=== PATIENT | female | born 1980 | race Caucasian/White ===

== ENCOUNTER → 2021-03-22 15:23 | Outpatient (BNVA) | payer OTHER, SELFPAY | PROVIDERS: PCP Physician Assistant Medical; Visit Provider Nurse Practitioner Family ==

== ENCOUNTER 2023-02-19 12:01 | Outpatient (REF) | payer OTHER, SELFPAY ==
--- NOTE | ~2023-02-19 | XR_ITS ---
EXAMINATION: XR CERVICAL SPINE CLINICAL INFORMATION: Cervicalgia. COMPARISON: None available. TECHNIQUE: Frontal, lateral and odontoid views are obtained. FINDINGS: Vertebral body heights and alignment are normal. At C4-C5, there is moderate disc space narrowing, with spondylosis. At C5-C6, there is mild anterior spondylosis. At C6-C7, there is moderate disc space narrowing, spondylosis. The remaining disc spaces are well-maintained. No acute fracture or spondylolisthesis is seen. There is multi-level mild cervical spondylosis and facet arthropathy. The posterior elements are intact. There is no prevertebral soft tissue swelling. The dens and C7-T1 interface are normal. XR/XR cervical spine 2V IMPRESSION: 1. There is moderate degenerative disc disease at C4-C5 and C6-C7. 2. There is mild anterior spondylosis extending from C4-C5 through C6-C7. 3. There is multi-level mild cervical facet arthropathy.
== END 2023-02-19 12:02 | disposition home or self-care (01) ==
LOC: HO.XRAY 12:01
PROVIDERS: PCP Nurse Practitioner Family; Visit Provider Internal Medicine
DX: M54.2 Cervicalgia (principal)
CPT/HCPCS: 72040

== ENCOUNTER 2023-02-21 09:34 | Outpatient (AMB) | payer OTHER, SELFPAY ==
--- NOTE | 2023-02-21 09:35 | MHC.OFFVIS ---
Intake Intake Visit Reasons: neck pain Allergies oxycodone [OXYCODONE] Adverse Reaction (Unknown, Verified 02/21/23 16:06) FACIAL ITCHINESS HPI neck pain HPI Details 43-year-old female with a history of chronic neck pain, more pronounced on the right side. The pain is mostly axial in nature. It is rated as 5 to 8/10 in intensity. It tends to wake her up from sleep at night. She sleeps on her stomach. She has not been engaged in physical therapy. She recently underwent plain film of the neck. She also has a history of migraines and has been having an increased frequency of her migraines given the increasing progressive symptoms in her neck. She PFSH Surgical History H/O: hysterectomy History of tonsillectomy Family History (Updated 03/22/21 @ 16:08 by Lily Hansen) Father HTN (hypertension) Mother HTN (hypertension) Maternal Grandmother Cancer HTN (hypertension) Social History Alcohol intake: current Alcohol intake frequency: holidays/special occasions only Patient Tobacco Use Status: Never used Tobacco Review of Systems Const All systems reviewed & are unremarkable except as noted in HPI and below Physical Exam General: Appears afebrile. Alert and oriented. Mood and affect appropriate. Follows and participates in conversation appropriately. Respiratory effort is unlabored. Able to transition from sit to stand unassisted. Ambulates with bilaterally normal heel strike and toe off. Office Procedures Cervical/Thoracic Facet Inj Details: Therapeutic Cervical Medial Branch Block, Right , C3, C4, C5, C6 medial branches, Ultrasound Guided After obtaining written consent, pre-procedure blood pressure and pulse were recorded and are in the nursing record for review. The patient was placed in sitting position. The respective cervical area was prepped with chloraprep. A 25 gauge 1.5 inch needle was inserted into the target medial branch nerve under ultrasound guidance, which was used to identify the articular pillars. No paresthesias were elicited with needle placement and aspiration was negative for blood and CSF. Next 0.5 ml 0.5% bupivicaine mixed with dexamethasone 2.5 mg was injected (0.5 cc total per level). The identical procedure was performed at the remaining levels. The skin was cleansed and a sterile bandage was applied. Following the procedure the patient's vital signs were stable. The patient tolerated the procedure well and no complications were encountered. Following the procedure the patient's vital signs were stable. The patient was discharged home in good condition with post-procedural instructions. Time Out: Immediately prior to the procedure, the following was verbally confirmed that there is a signed consent form and that the correct patient, planned procedure, site and side are consistent with documentation and that necessary equipment and/or blood products are available prior to the start of the case. Complications: none 99885 - with Fluoroscopy 44859 - second level, with Fluoroscopy 15349 - third level, with Fluoroscopy Procedure code (CPT) selection complete Results Reviewed Results Reviewed: Plain film of the cervical spine reviewed. Loss of cervical lordosis. Moderate facet arthropathy with probable disc osteophyte complexes leading to lower cervical foraminal stenosis. Assessment & Plan Assessment & Plan (1) Spondylosis: Code(s): M47.9 - Spondylosis, unspecified (2) Cervicalgia: Code(s): M54.2 - Cervicalgia Plan Patient is status post right C3-4, C4-5, C5-6 therapeutic medial branch blocks with bupivacaine and dexamethasone. Patient tolerated procedure well and was discharged home in stable condition with discharge instructions. All questions were answered. Patient will follow-up as needed for repeat procedures as indicated. Scribed for Dr. Elaine by Paras Lopez, medical practice manager, on 02/21/2022. I, Dr. Elaine, have personally reviewed and agree with the information entered by the scribe. Coding Level of Care Code New Pt Level 3 (57004) Diagnoses Spondylosis M47.9 Cervicalgia M54.2 CPT Codes Facet Injection Cervical/Thoracic - CPT: 31829 - with Fluoroscopy ([id number]) Facet Injection Cervical/Thoracic - CPT: 46429 - second level, with Fluoroscopy ([id number]) Facet Injection Cervical/Thoracic - CPT: 11490 - third level, with Fluoroscopy ([id number])
== END 2023-02-21 09:35 | disposition home or self-care (01) ==
LOC: HO.PMC 09:34
PROVIDERS: PCP Nurse Practitioner Family; Visit Provider Internal Medicine
DX: M47.9 Spondylosis, unspecified (principal); M54.2 Cervicalgia
CPT/HCPCS: 64490; 64491; 64492; 99203

== ENCOUNTER → 2023-02-21 09:34 | Outpatient (BNVA) | payer OTHER, SELFPAY | PROVIDERS: PCP Nurse Practitioner Family; Visit Provider Internal Medicine | DX: M47.812 Spondylosis without myelopathy or radiculopathy, cervical region (principal); M54.2 Cervicalgia | CPT/HCPCS: 64490; 64491; 64492; J1100 ==

== ENCOUNTER 2023-03-06 08:23 | Emergency (ER) | payer OTHER, SELFPAY ==
--- NOTE | ~2023-03-06 | XR_ITS ---
EXAMINATION: XR CHEST CLINICAL INFORMATION: Palpitations. Dyspnea. Pain. COMPARISON: None available. TECHNIQUE: Frontal view of the chest was obtained. FINDINGS: Cardiac silhouette is normal in size. The lungs are well aerated. There is no lobar consolidation. No pleural effusion or pneumothorax. Surgical clips of the right upper abdomen suggesting prior cholecystectomy. XR/XR chest 1V IMPRESSION: No acute pulmonary pathology.
--- NOTE | 2023-03-06 08:29 | ECG_ITS ---
Test Reason : palpatations Blood Pressure : / mmHG Vent. Rate : 082 BPM Atrial Rate : 082 BPM P-R Int : 128 ms QRS Dur : 074 ms QT Int : 376 ms P-R-T Axes : 037 065 009 degrees QTc Int : 439 ms Normal sinus rhythm Normal ECG When compared with ECG of 22-JAN-2010 09:42, No significant change was found Referred By: Generic ED Physician Electronically Signed By:TERENCE CAMPOS
[2023-03-06 08:35] VITALS: BP 140/80; PULSE 80; RESP 19; TEMP 36.6; O2SAT 99; BMI 25.7
[2023-03-06 09:05] VITALS: BP 123/84; PULSE 75; RESP 15; O2SAT 98
--- NOTE | 2023-03-06 09:07 | ED.ARRPALP ---
HPI - Arrhythmia/Palpitations General Chief Complaint: Arrhythmia/Palpitations Stated Complaint: Heart palpitations, body aches Time Seen by Provider: 03/06/23 08:45 Source: patient Mode of arrival: ambulatory Limitations: no limitations History of Present Illness HPI narrative: 43 yo female with PMH of anxiety who takes PRN klonopin 0.5mg notes she tried cocaine on Friday since Friday she has had rapid heart beat, fluttering and body aches. She feels like it is not getting better or going away. She has not had fevers, cough, travel. No OCPs. She has never used cocaine before. She states even with taking extra klonopin it was not gone away. She also is not sleeping. MD complaint: rapid heart beat, heart racing and palpitations Onset (ago): day(s) (Friday) Duration: constant Severity: moderate Context: occurred during rest, occurred during exertion and recent drug use Associated symptoms: chest pain, anxiety and other (body aches) Treatments prior to arrival: other (anxiolytic) Related Data Home Medications Medication Instructions Recorded Confirmed albuterol sulfate 90 mcg/actuation 0 mcg inhalation 03/22/21 aerosol inhaler (ProAir HFA) budesonide 32 mcg/actuation nasal intranasal 03/22/21 spray citalopram 40 mg tablet 40 mg PO DAILY 03/22/21 clonazepam 0.5 mg tablet 0.5 mg PO BID PRN 03/22/21 lamotrigine 150 mg tablet 150 mg PO BID 03/22/21 ondansetron HCl 4 mg tablet 4 mg PO Q8H PRN 03/22/21 Previous Rx's Medication Instructions Recorded sumatriptan succinate 100 mg tablet 100 mg PO Q2H PRN migraine 10/15/22 headache 30 days #12 tabs celecoxib 100 mg capsule 100 mg PO BID PRN pain #60 caps 02/28/23 Allergies Allergy/AdvReac Type Severity Reaction Status Date / Time oxycodone [OXYCODONE] AdvReac Unknown FACIAL Verified 02/21/23 16:06 ITCHINESS Review of Systems Review of Systems: Constitutional : No Fever, No Chills, No Fatigue ENT/Mouth : No sore throat, No Rhinorrhea Eyes: No Eye Pain, No Swelling, No Redness Cardiovascular : No Chest Pain, No SOB, No Dyspnea on Exertion Respiratory : No Cough, No Sputum Gastrointestinal : No Nausea, No Vomiting, No Diarrhea, No abdominal Pain Genitourinary : No Dysuria, No Urinary Frequency, No Hematuria, Musculoskeletal : No joint pain, pos Myalgias, No Joint Swelling Skin : No Skin Lesions, No rash Neuro : No Weakness, No Numbness, No Dizzines no Headache Psych : pos Anxiety/Panic, No Depression Heme/Lymph: No Bruising, No Bleeding,No Lymphadenopathy Endocrine : No Polyuria, No Polydipsia All other systems reviewed and are negative [facility] Past Medical History Attestation statement: The following information was validated with the patient. Source: old records reviewed Onset Date is defined in the Problem List Problems that require an onset date and time if occurred within 24 hrs of arrival to the ED Aortic Dissection and Rupture; Neurologic impairment; Cardiopulmonary Arrest; Endotracheal Intubation; Insertion or Replacement of Mechanical Circulatory Assist Device Medical History Migraine without aura Surgical History H/O: hysterectomy History of tonsillectomy Family History Family History (Updated 03/22/21 @ 16:08 by Lily Hansen) Father HTN (hypertension) Mother HTN (hypertension) Maternal Grandmother Cancer HTN (hypertension) Social History Social History Alcohol intake: current Alcohol intake frequency: does not drink Patient Tobacco Use Status: Never used Tobacco Use of substances other than those prescribed or required for medical reasons: No Advance Directives: No Advance Directives Information Provided: No Physical Exam Vital Signs: Vital Signs: Last Vital Signs Temp 98 F 03/06/23 08:35 Pulse 75 03/06/23 09:05 Resp 15 03/06/23 09:05 BP 123/84 03/06/23 09:05 Pulse Ox 98 03/06/23 09:05 O2 Del Method Room Air 03/06/23 09:05 BMI result Body Mass Index 25.7 Appearance: Alert. Oriented X3. No acute distress. Anxious Eyes: Pupils equal, round and reactive to light. ENT: Pharynx normal. Neck: Normal inspection. Neck supple. CVS: Normal heart rate and rhythm. Pulses normal. Respiratory: No respiratory distress. Breath sounds normal. Abdomen: Soft and non-tender. Skin: Skin warm and dry. Normal skin color. Normal skin turgor. Extremities: No lower extremity edema. No calf ttp Neuro: Oriented X 3. No motor deficit. No sensory deficit. Medical Decision Making Medical Decision Making [facility] Narrative: 43 yo female with hx of anxiety who did cocaine on Friday now with prolonged anxiety, palpitations, atypical chest pain - she is not sleeping, her heart is racing. She is PERC negative, she has no known ACS risk factors. At this time will obtain lytes, TSH, troponin, EKG, CXR. Start on oral valium for some anxiolytic. Differential Diagnosis Differential Diagnoses: The differential diagnosis associated with the presentation includes anxiety, palpitations, lyte abnormality, viral syndrome, cocaine induced anxiety Admission/Observation Consideration of admission/observation: Escalation of care including admission/observation considered negative labs and no events on tele at this time will refer to PCP for holter monitor Lab Data [facility] Lab Attestation statement: I reviewed the patient's lab results. 03/06/23 09:12 03/06/23 09:12 Labs: Lab Results 03/06/23 Range/Units 09:12 WBC 6.9 (4.8-10.8) X10*3/uL RBC 3.91 L (4.20-5.50) X10*6/uL Hgb 12.3 (12.0-16.0) g/dl Hct 37.0 (37.0-47.0) % MCV 94.6 (80.0-98.0) fL MCH 31.5 (27.0-33.0) pg MCHC 33.2 (31.0-35.0) g/dl RDW 12.5 (11.0-16.0) % Plt Count 353 (160-400) X10*3/uL MPV 9.3 L (9.4-12.3) fL Immature Gran % (Auto) 0.3 (0.0-0.4) % Neut % (Auto) 63.7 (45-73) % Lymph % (Auto) 24.7 (20-40) % [place]anan % (Auto) 8.4 (2-11) % Eos % (Auto) 2.6 (0-4) % Baso % (Auto) 0.3 (0-2) % Lymph # (Auto) 1.7 (1.2-4.9) X10*3/uL [place] # (Auto) 0.6 (0.1-1.2) X10*3/uL Eos # (Auto) 0.2 (0.0-0.4) X10*3/uL Baso # (Auto) 0.0 (0.0-0.2) X10*3/uL Abs Immat Gran (auto) 0.02 (0.00-0.03) X10*3/uL Absolute Neuts (auto) 4.4 (2.0-8.3) x10*3/uL Absolute Nucleated RBC 0.000 (0.0-0.012) X10*3/uL Nucleated RBC % (auto) 0.0 (0.0-0.2) /100WBC Sodium 141 (135-145) mmol/L Potassium 3.7 (3.3-5.1) mmol/L Chloride 108 (96-108) mmol/L Carbon Dioxide 28 (22-29) mmol/L Anion Gap 9 L (12-20) BUN 5 L (9-16) mg/dL Creatinine 0.75 (0.5-1.4) mg/dL Estim Creat Clear Calc 79.7 Estimated GFR > 60 Random Glucose 91 (60-115) mg/dL Calcium 9.3 (8.4-10.2) mg/dL Magnesium 2.2 (1.6-2.6) mg/dL Total Bilirubin 0.2 (0.0-1.0) mg/dL Direct Bilirubin < 0.2 (0.0-0.5) mg/dL AST 15 (5-31) U/L ALT 26 (0-31) U/L Alkaline Phosphatase 47 (39-117) U/L Total Creatine Kinase 59 (26-140) U/L Troponin I High Sens < 2.7 (<3.5-17.0) ng/L Total Protein 6.9 (6.5-8.0) g/dL Albumin 4.1 (3.5-5.0) g/dL TSH 1.51 (0.32-4.0) uIU/mL COVID-19 (SHALINI) Negative (Negative) COVID-19 Clin Com See Note Influenza Type A (ASYA) Negative (Negative) Influenza Type B (ASYA) Negative (Negative) Influenza A & B Note See Note Independent Interpretation I performed an independent interpretation of an: EKG and Plain X-Ray Interpretation: Rate: 82 Rhythm: NSR [place]: normal Normal P waves. Normal LEONARDA. Normal QRS complex. ST T wave : normal no NANCY qTC: 439 prior studies: no acute ischemia The study has been interpreted contemporaneously by me. . Radiology Impression Discussion of test interpretation with radiology: I have reviewed the radiologist's reading. External Record Review External record reviewed: Inpatient record Discharge Plan Discharge Clinical Impression: Palpitations Patient Disposition: Home, Self-Care Instructions: Heart Palpitations (ED) Additional Instructions: return for worsening symptoms - today negative flu, covid, normal electrolytes, normal thyroid, negative test for heart attack, EKG reassuring, Chest xray was normal. flu negative. labs were reassuring, no events on tele. At this time suspect residual events from ingestion. Please contact your doctor for a holter monitor to capture palpitations. return for worsening symptoms, fainting, increased pain, swelling, shortness of breath or any other concerns. Prescriptions: No Action sumatriptan succinate 100 mg tablet 100 mg PO Q2H PRN (Reason: migraine headache) 30 Days Qty: 12 6RF Rx Instructions: max 2 tabs per day or 4 tabs/week (may take with Tylenol) celecoxib 100 mg capsule 100 mg PO BID PRN (Reason: pain) Qty: 60 2RF citalopram 40 mg tablet 40 mg PO DAILY lamotrigine 150 mg tablet 150 mg PO BID clonazepam 0.5 mg tablet 0.5 mg PO BID PRN ondansetron HCl 4 mg tablet 4 mg PO Q8H PRN budesonide 32 mcg/actuation spray,non-aerosol intranasal albuterol sulfate [ProAir HFA] 90 mcg/actuation HFA aerosol inhaler 0 mcg inhalation Referrals: Kailee Mcdonald NP [Primary Care Provider] - (call to obtain holter monitor) Stand Alone Forms: Work/School Release
--- NOTE | 2023-03-06 09:16 | PC.NURSE ---
pt alert and oriented, vss, pt reports heart palpitations that started on Friday and has gotten progressively worse since then. she also reports headache, no sob, dizziness, blurry vision. no other complaints to this lyric writer at this time. pt asked if she wants her status to be confidential. she states not at this time if something shows up in my results, we will discuss it .
[2023-03-06 09:21] LABS: MANUAL DIFF FLAG NO
[2023-03-06 09:26] LABS: Basophils Percent Auto 0.3 % (0-2); Eosinophils Absolute Auto 0.2 X10*3/uL (0.0-0.4); Eosinophils Percent Auto 2.6 % (0-4); Hemoglobin 12.3 g/dl (12.0-16.0); Imm Gran Abs Auto 0.02 X10*3/uL (0.00-0.03); Imm Gran Pct Auto 0.3 % (0.0-0.4); Lymphocytes Absolute Auto 1.7 X10*3/uL (1.2-4.9); Lymphocytes Percent Auto 24.7 % (20-40); Mean Corpuscular HGB Conc 33.2 g/dl (31.0-35.0); Mean Corpuscular Hemoglobin 31.5 pg (27.0-33.0); Mean Corpuscular Volume 94.6 fL (80.0-98.0); Mean Platelet Volume 9.3 fL (9.4-12.3); Monocytes Absolute Auto 0.6 X10*3/uL (0.1-1.2); Monocytes Percent Auto 8.4 % (2-11); Neutrophils Absolute Auto 4.4 x10*3/uL (2.0-8.3); Neutrophils Percent Auto 63.7 % (45-73); Platelet Count 353 X10*3/uL (160-400); Red Blood Count 3.91 X10*6/uL (4.20-5.50); Red Cell Distribution Width 12.5 % (11.0-16.0); White Blood Count 6.9 X10*3/uL (4.8-10.8)
[2023-03-06 09:39] LABS: Alanine Aminotransferase 26 U/L (0-31); Albumin Level 4.1 g/dL (3.5-5.0); Alkaline Phosphatase 47 U/L (39-117); Anion Gap 9 (12-20); Aspartate Amino Transferase 15 U/L (5-31); Bilirubin Direct < 0.2 mg/dL (0.0-0.5); Bilirubin Total 0.2 mg/dL (0.0-1.0); Blood Urea Nitrogen 5 mg/dL (9-16); Calcium 9.3 mg/dL (8.4-10.2); Carbon Dioxide 28 mmol/L (22-29); Chloride 108 mmol/L (96-108); Creatinine Clr Calc Pharmacy 79.7; Estimated Glomerular Filt Rate > 60; Glucose Random 91 mg/dL (60-115); Magnesium 2.2 mg/dL (1.6-2.6); Potassium 3.7 mmol/L (3.3-5.1); Sodium 141 mmol/L (135-145); Total Protein 6.9 g/dL (6.5-8.0)
[2023-03-06 09:49] LABS: IDNOW Serial# 9DB6401D; Influenza A Negative (Negative)
[2023-03-06 09:50] LABS: Influenza B2 Negative (Negative)
[2023-03-06 09:53] LABS: Troponin-I High Sensitivity < 2.7 ng/L (<3.5-17.0)
[2023-03-06 09:59] LABS: IDNOW Serial# 58CA691E
[2023-03-06 10:00] LABS: COVID-19 Test Negative (Negative); TSH reflex Free T4 1.51 uIU/mL (0.32-4.0)
[2023-03-06] MEDS: diazePAM 2 MG TABLET 5 MG PO (10:03)
--- NOTE | 2023-03-06 10:07 | PC.NURSE ---
po meds given as documented.
[2023-03-06 10:17] VITALS: BP 129/84; PULSE 75; RESP 20; O2SAT 99
--- NOTE | 2023-03-06 10:18 | PC.NURSE ---
pt cleared for discharge, discharge instructions reviewed with pt. no complaints at the time of discharge. ambulated to waiting room.
== END 2023-03-06 10:19 | disposition home or self-care (01) ==
PROVIDERS: Emergency Provider Emergency Medicine; PCP Nurse Practitioner Family
DX: I49.9 Cardiac arrhythmia, unspecified (principal); M79.10 Myalgia, unspecified site; R00.2 Palpitations; F14.90 Cocaine use, unspecified, uncomplicated; F41.9 Anxiety disorder, unspecified; Z11.52 Encounter for screening for COVID-19; Z20.828 Contact with and (suspected) exposure to other viral communicable diseases; Z79.899 Other long term (current) drug therapy
CPT/HCPCS: 36415; 71045; 80048; 80076; 82550; 83735; 84443; 84484; 85025; 87502; 87635; 93005; 99283; 99285

== ENCOUNTER → 2023-03-06 08:29 | Outpatient (BNV) | payer OTHER, SELFPAY | PROVIDERS: Emergency Provider Emergency Medicine; PCP Nurse Practitioner Family; Visit Provider Internal Medicine | DX: R00.2 Palpitations (principal) | CPT/HCPCS: 93010 ==

== ENCOUNTER 2023-03-11 15:15 | Outpatient (AMB) | payer OTHER, SELFPAY ==
--- NOTE | 2023-03-11 15:31 | MHC.OFFVIS ---
Intake Vital Signs 03/11/23 15:38 Height 5 ft 1 in BP 110/80 Blood Pressure Location Rt brachial Position Sitting Pulse 87 Pulse Source Pulse Oximeter Pulse Oximetry (%) 98 Oxygen Delivery Method Room Air Intake Visit Reasons: Increased in HERNANDEZ and neck pain Intake Note: Patient presents for follow up on migraines and neck pain. There getting more frequent, the only think Im taking is sumatriptan Allergies oxycodone [OXYCODONE] Adverse Reaction (Unknown, Verified 03/11/23 15:44) FACIAL ITCHINESS Medication List - Last Reconciled 03/11/23 by JUAN Quezada albuterol sulfate 90 mcg/actuation (ProAir HFA) 0 mcg inhalation budesonide 32 mcg/actuation intranasal celecoxib 100 mg PO BID PRN citalopram 40 mg PO DAILY clonazepam 0.5 mg PO BID PRN lamotrigine 150 mg PO BID ondansetron HCl 4 mg PO Q8H PRN sumatriptan succinate 100 mg PO Q2H PRN 30 days HPI HPI Comments History of Present Illness Details 43-yr-old female presents for f/u visit. Pt denies any significant interval medical changes. She has been having an increase in her migraines- now 2 x's per week. About 3 months ago, she has been having right upper cervical throbbing pain, which usually is focal but occasionally can shoot up to her right eye. The migraine is mod-severe righted in the eye, a/w photophobia, phonophobia, allodynia, nausea, difficulty sleeping, activity intolerance, dizziness, cognitive difficulties. Migraines triggered by stress or poor sleep- has chronic insomnia. If she does not catch the migraine at the 1st sign, Sumatriptan may not work and she cannot work. [facility] Medical History (Updated 03/13/23 @ 09:52 by JUAN Quezada) Migraine without aura Surgical History H/O: hysterectomy History of tonsillectomy Family History Father HTN (hypertension) Mother HTN (hypertension) Maternal Grandmother Cancer HTN (hypertension) Social History Alcohol intake: current Alcohol intake frequency: does not drink Patient Tobacco Use Status: Never used Tobacco Physical Exam Vital Signs: Last Vital Signs Pulse 87 03/11/23 15:38 BP 110/80 03/11/23 15:38 Pulse Ox 98 03/11/23 15:38 Oxygen Delivery Method Room Air 03/11/23 15:38 Const General: cooperative and no acute distress Orientation/consciousness: patient oriented x3 HEENT Other: Right lower occipital region focal area of palpable tenderness, nonradiating. Resp Effort & Inspection: normal respiratory effort and able to speak in complete sentences Neuro General: patient oriented x3 Cranial nerves: Yes CN's II-XII intact bilaterally Cognition (Neuro): normal cognition Psych Appearance: grossly normal Mental Status: mental status grossly normal Speech and movement: Normal speech and movement present Affect: normal affect Attitude: cooperative Assessment & Plan Assessment & Plan (1) Migraine without aura: Code(s): G43.009 - Migraine without aura, not intractable, without status migrainosus (2) Spasmodic torticollis: Code(s): G24.3 - Spasmodic torticollis Plan For acute headache treatment: It is important to take as needed acute medications at the first sign of headache, however you want to avoid taking most as needed headache too often as this can lead to medication overuse/adaptation headaches. Trial rizatriptan 10 mg p.r.n. may add joint with ibuprofen or Tylenol. Hold sumatriptan for now Potential adverse effects of triptans, including but not limited to nausea, fatigue, chest tightness/tingling (usually passes within a few minutes), medication overuse headaches. Previous acute migraine medication trials: Sumatriptan not always effective Acute migraine medication contraindications: None at this time For headache prevention medication: Preventative medications should be taken routinely as prescribed for best effect, it may take several weeks to see full effect. Start Ajovy 225 mg subcu q.month. Reviewed potential adverse effects of Ajovy, including but not limited to injection site reactions. Previous migraine prevention medication trials: Amitriptyline, Propranolol, Amlodipine. Migraine prevention medication contraindications: Depakote and topiramate due to current polypharmacy in a female patient of childbearing age. For spasmodic torticollis and occipital region pain: Monitor response to Ajovy as above. Follow-up with pain management as scheduled Future considerations: Resuming Botox or, occipital nerve bloc, ktrigger point injections. Follow-up in 4 months or sooner prn. Medications: New rizatriptan max 2 tabs per day or 4 tabs per week 5 - 10 mg (0.5 - 1 x 10 mg) PO Q2H PRN 12 tabs 3RF migraine headache 21 days fremanezumab-vfrm (Ajovy) administer 225mg sc q month 225 mg (1.5 mL) subcut ONCE 1.5 mL 6RF 28 days Coding Level of Care Code Est Pt Level 4 (63138) Diagnoses Migraine without aura G43.009 Spasmodic torticollis G24.3
[2023-03-11 15:38] VITALS: BP 110/80; PULSE 87; O2SAT 98
== END 2023-03-11 16:26 | disposition home or self-care (01) ==
PROVIDERS: PCP Physician Assistant Medical; Visit Provider Nurse Practitioner Family
DX: G43.009 Migraine without aura, not intractable, without status migrainosus (principal); G24.3 Spasmodic torticollis
CPT/HCPCS: 99214

== ENCOUNTER → 2023-03-11 15:15 | Outpatient (BNVA) | payer BC, SELFPAY | PROVIDERS: PCP Physician Assistant Medical; Visit Provider Nurse Practitioner Family ==

== ENCOUNTER 2023-08-05 09:30 | Inpatient (IN) | payer OTHER, SELFPAY ==
--- NOTE | 2023-08-05 | ECG_ITS ---
Test Reason : CHEST PRESSURE Blood Pressure : / mmHG Vent. Rate : 081 BPM Atrial Rate : 081 BPM P-R Int : 130 ms QRS Dur : 072 ms QT Int : 376 ms P-R-T Axes : 059 068 044 degrees QTc Int : 436 ms Normal sinus rhythm with sinus arrhythmia Normal ECG When compared with ECG of 06-MAR-2023 08:31, Nonspecific T wave abnormality no longer evident in Inferior leads Referred By: Generic ED Physician Electronically Signed By:Chepe Beach
[2023-08-05 09:32] VITALS: BP 132/85; PULSE 89; RESP 14; TEMP 36.7; O2SAT 95; BMI 26.1
[2023-08-05 10:03] LABS: MANUAL DIFF FLAG NO
[2023-08-05 10:05] LABS: Basophils Percent Auto 0.2 % (0-2); Eosinophils Absolute Auto 0.2 X10*3/uL (0.0-0.4); Eosinophils Percent Auto 3.2 % (0-4); Hematocrit 36.5 % (37.0-47.0); Hemoglobin 12.5 g/dl (12.0-16.0); Imm Gran Abs Auto 0.02 X10*3/uL (0.00-0.03); Imm Gran Pct Auto 0.4 % (0.0-0.4); Lymphocytes Absolute Auto 2.2 X10*3/uL (1.2-4.9); Lymphocytes Percent Auto 39.2 % (20-40); Mean Corpuscular HGB Conc 34.2 g/dl (31.0-35.0); Mean Corpuscular Hemoglobin 32.1 pg (27.0-33.0); Mean Corpuscular Volume 93.6 fL (80.0-98.0); Mean Platelet Volume 9.4 fL (9.4-12.3); Monocytes Absolute Auto 0.5 X10*3/uL (0.1-1.2); Monocytes Percent Auto 9.3 % (2-11); Neutrophils Absolute Auto 2.7 x10*3/uL (2.0-8.3); Neutrophils Percent Auto 47.7 % (45-73); Platelet Count 348 X10*3/uL (160-400); Red Cell Distribution Width 12.2 % (11.0-16.0); White Blood Count 5.6 X10*3/uL (4.8-10.8)
[2023-08-05 10:26] LABS: Acetaminophen LAB < 3 mcg/mL (<30); Alanine Aminotransferase 19 U/L (0-31); Albumin Level 4.2 g/dL (3.5-5.0); Alkaline Phosphatase 56 U/L (39-117); Anion Gap 12 (12-20); Aspartate Amino Transferase 18 U/L (5-31); Bilirubin Total 0.4 mg/dL (0.0-1.0); Blood Urea Nitrogen 7 mg/dL (9-16); Calcium 8.7 mg/dL (8.4-10.2); Carbon Dioxide 27 mmol/L (22-29); Chloride 106 mmol/L (96-108); Creatinine Clr Calc Pharmacy 70.8; Estimated Glomerular Filt Rate > 60; Ethanol < 10 mg/dL; Glucose Random 94 mg/dL (60-115); Salicylate < 5.0 mg/dL (15-30); Sodium 141 mmol/L (135-145); Total Protein 6.9 g/dL (6.5-8.0)
--- NOTE | 2023-08-05 11:23 | PC.NURSE ---
patient tearful during triage. when patient was told that she was a section 12 and had to meet with care team and change into hospital attire, patient became agitated with the process stating she has a home to take care of. belongings locked in pod closet. care team in meeting with patient at this time.
--- NOTE | 2023-08-05 11:30 | MHC.EDTECH ---
Patient Belonging secured in ED BH POD Closet first shelf
[2023-08-05] MEDS: clonazePAM 1 MG TABLET PO (11:46)
--- NOTE | 2023-08-05 14:46 | ED_ITS ---
HPI - Psych General Chief Complaint: Psychiatric Symptoms Stated Complaint: Syncope/ crisis Time Seen by Provider: 08/05/23 10:29 Source: patient Mode of arrival: ambulatory Limitations: no limitations History of Present Illness HPI Narrative: Patient works in short stay. She has been under a lot of stress, has been drinking alcohol and using cocaine. She has thoughts of not living but denies a plan. Patient is guarded and tearful complaint: suicidal ideation and feels depressed Onset (ago): week(s) Related Data Home Medications ?Medication ?Instructions ?Recorded ?Confirmed citalopram 40 mg tablet 40 mg PO DAILY 03/22/21 08/05/23 clonazepam 0.5 mg tablet 0.5 mg PO BID PRN Anxiety 03/22/21 08/05/23 lamotrigine 150 mg tablet 150 mg PO BID 03/22/21 08/05/23 fexofenadine-pseudoephedrine ER 1 tab PO QAM 08/05/23 08/05/23 180 mg-240 mg tablet,ext.release 24 hr (Anisha-D 24 Hour) Previous Rx's ?Medication ?Instructions ?Recorded sumatriptan succinate 100 mg tablet 100 mg PO Q2H PRN migraine 10/15/22 headache 30 days #12 tabs clonidine HCl 0.1 mg tablet 0.1 mg PO Q4H PRN anxiety 30 days 08/06/23 #60 tabs Allergies Allergy/AdvReac Type Severity Reaction Status Date / Time No Known Allergies Allergy Verified 08/05/23 09:33 Review of Systems 2 Review of Systems: Yes all other systems are reviewed and are negative Neurologic: Denies Sensory deficit (Neuro) [facility] Past Medical History Medical History (Updated 08/06/23 @ 12:41 by Del Boucher MD) Cocaine use disorder Alcohol use disorder PTSD (post-traumatic stress disorder) Adjustment disorder with mixed disturbance of emotions and conduct in remission Migraine without aura Surgical History H/O: hysterectomy History of tonsillectomy Family History Family History Father HTN (hypertension) Mother HTN (hypertension) Maternal Grandmother Cancer HTN (hypertension) Social History Social History Household Members: Other Household Members Other:: Cat Housing: Apartment Do you presently have visiting nurse or other home services: No Alcohol intake: current Alcohol intake frequency: does not drink Patient Tobacco Use Status: Never used Tobacco Use of substances other than those prescribed or required for medical reasons: Yes Substance Use Type: Crack/Cocaine Last Used Substance Other:: once this weekend Currently Displaying Signs/Symptoms of Drug Intoxication Withdrawal: No Any prior treatment program specific to substance use: No Have you been hit, kicked, punched, or otherwise hurt by someone within the past year? If so, by whom?: No Do you feel safe in your current relationship?: No Current Relationship Is there a partner from a previous relationship who is making you feel unsafe now?: No Are you made to feel afraid or neglected: No Spiritual Healthcare Practices: None Reported Advance Directives: No Advance Directives Information Provided: No Do you have a plan to hurt others: No Plan Recently lost weight without trying: No How much weight loss: Not applicable Eating poorly because of decreased appetite: No Nutrition screen score: 0 Nutrition Risks: No Nutritional Risk Patient : No : No Poor oral hygiene: No Physical Exam 2 Vital Signs: Vital Signs: Last Vital Signs Temp 98.2 F 08/06/23 09:55 Pulse 97 08/06/23 09:55 Resp 18 08/06/23 09:55 BP 126/75 08/06/23 09:55 Pulse Ox 97 08/06/23 09:55 O2 Del Method Room Air 08/06/23 09:55 BMI result Body Mass Index 26.1 Const: Other: female crying appearing stressed Orientation/consciousness: oriented to person and patient oriented x3 L imitations: no limitations HEENT: Head: Yes normal to inspection Ears: external ears normal General nose exam: Normal external nose present Mouth: Normal oral and palatal mucosa present and oropharynx normal Throat: Yes posterior oropharynx normal Eyes: General: appearance normal, both eyes and all related structures Neck: Other: supple Neck: Yes normal visual inspection Chest: Chest palpation & inspection: normal inspection of the chest Resp: Auscultation: clear to auscultation bilaterally Cardio: Jugular venous distension: no JVD Rate: regular rate Rhythm: r egular rhythm Heart sounds: S1 normal heart sound present and S2 normal heart sound present GI: Inspection: Yes normal to inspection Palpation (GI): Soft to palpation, nontender and No hepatosplenomegaly present Auscultation: normal bowel sounds : General: Yes no CVA tenderness Back/Spine/Pelvis: Back: no CVA tenderness Skin: General skin exam: no rashes or lesions noted Neuro: General: oriented to person and patient oriented x3 Cranial nerves: Yes CN's II-XII intact bilaterally Motor exam (neuro): 5/5 motor strength present throughout Sensory Exam: No Sensory deficit (Neuro) Extrem: General: Yes normal to inspection Psych: Other: tearful yet guarded Course Reevaluation(s) Reevaluation #1: patient is a concern for suicide will have the patient evaluated by Time: 14:49 Reevaluation #2: Patient placed in physician observation at 3:30pm. The reason is that she needs time to be evaluated and reevaluated for depression as well as needs to see how she does over time. Time: 15:34 Reevaluation #3: end physician observation: admission has been decided upon Time: 15:36 Medications Administered Discontinued Medications Generic Name Dose Route Start Last Admin Trade Name Freq PRN Reason Stop Dose Admin Acetaminophen 650 mg 08/05/23 15:31 08/06/23 09:22 Acetaminophen 325 Mg Tablet PO 650 mg Q6H PRN Administration Headache/Pain Mild Scale (1-3) Clonazepam 1 mg 08/05/23 11:30 08/05/23 11:46 Clonazepam 1 Mg Tablet PO 08/05/23 11:31 1 mg ONCE ONE Administration Clonazepam 0.5 mg 08/05/23 17:50 08/06/23 09:22 Clonazepam 0.5 Mg Tablet PO 0.5 mg BID PRN Administration Anxiety Escitalopram Oxalate 20 mg 08/06/23 09:00 08/06/23 08:52 Escitalopram Oxalate 20 Mg Tablet PO Not Given DAILY RODRIGUEZ Lamotrigine 150 mg 08/05/23 21:00 08/06/23 08:52 Lamotrigine 25 Mg Tablet PO Not Given BID RODRIGUEZ Naloxone HCl 8 mg 08/06/23 12:50 08/06/23 13:00 Naloxone Hcl Nasal Take Home 4 Mg [place] NOSTRILALT 08/06/23 12:51 8 mg ONCE ONE Administration Sumatriptan Succinate 25 mg 08/05/23 14:51 08/05/23 15:15 Sumatriptan Succinate 25 Mg Tablet PO 08/05/23 14:52 25 mg ONCE ONE Administration Trazodone HCl 50 mg 08/05/23 15:31 08/05/23 20:43 Trazodone Hcl 50 Mg Tablet PO 50 mg BEDTIME [id number] PRN Administration Insomnia Medical Decision Making Differential Diagnosis Differential Diagnoses: The differential diagnosis associated with the presentation includes (depression, polysubstance abuse, alcohol dependency, suicidal ideation) Admission/Observation Consideration of admission/observation: Escalation of care including admission/observation considered (upon arrival patient considered for admission) Consult Healthcare Provider Management of the patient was discussed with: Behavioral Health Provider Lab Data 08/05/23 09:59 08/05/23 09:59 Labs: Lab Results 08/05/23 Range/Units 09:59 WBC 5.6 (4.8-10.8) X10*3/uL RBC 3.90 L (4.20-5.50) X10*6/uL Hgb 12.5 (12.0-16.0) g/dl Hct 36.5 L (37.0-47.0) % MCV 93.6 (80.0-98.0) fL MCH 32.1 (27.0-33.0) pg MCHC 34.2 (31.0-35.0) g/dl RDW 12.2 (11.0-16.0) % Plt Count 348 (160-400) X10*3/uL MPV 9.4 (9.4-12.3) fL Immature Gran % (Auto) 0.4 (0.0-0.4) % Neut % (Auto) 47.7 (45-73) % Lymph % (Auto) 39.2 (20-40) % [place] % (Auto) 9.3 (2-11) % Eos % (Auto) 3.2 (0-4) % Baso % (Auto) 0.2 (0-2) % Lymph # (Auto) 2.2 (1.2-4.9) X10*3/uL [place] # (Auto) 0.5 (0.1-1.2) X10*3/uL Eos # (Auto) 0.2 (0.0-0.4) X10*3/uL Baso # (Auto) 0.0 (0.0-0.2) X10*3/uL Abs Immat Gran (auto) 0.02 (0.00-0.03) X10*3/uL Absolute Neuts (auto) 2.7 (2.0-8.3) x10*3/uL Absolute Nucleated RBC 0.000 (0.0-0.012) X10*3/uL Nucleated RBC % (auto) 0.0 (0.0-0.2) /100WBC Sodium 141 (135-145) mmol/L Potassium 4.0 (3.3-5.1) mmol/L Chloride 106 (96-108) mmol/L Carbon Dioxide 27 (22-29) mmol/L Anion Gap 12 (12-20) BUN 7 L (9-16) mg/dL Creatinine 0.85 (0.5-1.4) mg/dL Estim Creat Clear Calc 70.8 Estimated GFR > 60 Random Glucose 94 (60-115) mg/dL Calcium 8.7 D (8.4-10.2) mg/dL Total Bilirubin 0.4 (0.0-1.0) mg/dL AST 18 (5-31) U/L ALT 19 (0-31) U/L Alkaline Phosphatase 56 (39-117) U/L Total Protein 6.9 (6.5-8.0) g/dL Albumin 4.2 (3.5-5.0) g/dL Salicylates < 5.0 L (15-30) mg/dL Acetaminophen < 3 (<30) mcg/mL Ethyl Alcohol < 10 mg/dL Chronic Conditions Patient?s care impacted by: Other (depression) Social Determinants Patient?s care significantly limited by Social Determinants of Health including: Alcoholism and drug addiction in family Discharge Plan Discharge Clinical Impression: Suicidal ideation, Depression Patient Disposition: Admitted As Inpatient Interventions: Admission Worksheet (ED) Last Done: 08/05/23 16:37 Discharge Date/Time: 08/05/23 16:39
[2023-08-05] MEDS: SUMAtriptan succinate 25 MG TABLET PO (15:15)
[2023-08-05 16:40] LABS: Amphetamine Screen Urine Not Detected (Not Detect); Barbiturates, Urine Not Detected (Not Detect); Benzodiazepines Screen Urine Not Detected (Not Detect); Buprenorphine Scr Not Detected (Not Detect); Cannabinoid Screen Urine Not Detected (Not Detect); Cocaine Screen Urine POSITIVE (Not Detect); Fentanyl, urine Not Detected (Not Detect); Methadone Screen, Urine Not Detected (Not Detect); Opiate Screen Urine Not Detected (Not Detect); Oxycodone Screen Urine Not Detected (Not Detect); Phencyclidine Screen Urine Not Detected (Not Detect)
[2023-08-05 16:48] LABS: Appearance Urine Clear; Color Urine Yellow; Glucose Urine UA Negative (Negative); Leukocyte Esterase Urine Negative (Negative); Nitrite Urine Negative (Negative); Specific Gravity - Urine <= 1.005 (1.005-1.025); Urine Blood Negative (Negative); Urine Ketones Negative (Negative); Urine Protein Negative (Neg-Trace)
--- NOTE | 2023-08-05 17:18 | P.HPPS_ITS ---
[facility] Date of Service: 08/05/23 Chief Complaint: depression/SI Sources of Information: patient interviewed, chart reviewed and crisis/core team assessment reviewed HPI Subjective Notes: Conditional Voluntary and Section 12B Narrative: Patient is a 43-year-old female with history of depression/anxiety, PTSD and intermittent cocaine/alcohol abuse. Patient presents after making suicidal comments to coworkers. Patient is upset that she is admitted, saying that her comments got taking way out of context and she remains on a 12 B. Despsite being upset she is calm, polite, cooperative, forthcoming, logical and linear and organized in behavior and speech. Patient said that about once a month she relapses with alcohol and cocaine which she did this past weekend. She says she always feels depressed and angry at herself the day after and this was no different. Patient reports that she has no history at all suicide or of any of self-harm. She reports that time to time she will get passive thoughts of wishing she were not here but adamantly reiterates she would never kill herself, knowing that these passive thoughts will soon pass and citing love for her father and cat as protective factors. Patient said that this Friday after this binge weekend, she was feeling depressed and texted a co-worker who was also friend that she wishes she could off herself. Patient says that this is not uncommon, she was just venting, and that her friend knows her well. She reports that her friend said something to the effect of stop Saying that... [listen to] put your music on... Later on in the day patient says she was crying (which she says is also not uncommon for her) and her supervisor dehydrogenation came over and asked why. Patient very much regrets ever saying anything to her but acknowledges she said something to the effect of have you ever just wanted to not be here anymore... Patient felt that her supervisor dehydrogenation started almost forcibly asking her questions which caused her to become exceedingly anxious and then triggered a full-blown panic attack causing patient to pass out. She was brought to the emergency room and although she maintains that she was never suicidal, that these were just thoughts that she was expressing, she is now being psychiatrically admitted. Patient again reiterates she does not need to be on a locked unit, that she has a therapist, psychiatrist that she is on medications which she takes regularly is in no way a risk to herself at all. She says she just wants to discharge, get back home, get back to her cat, and work out her issues with her outpatient provider as she normally does. She agrees that her once a month substance abuse is definitely a problem for her and that she needs to start going to AA. Past Psychiatric History: Psychiatrically admitted one time 20 years ago in 2003 when her grandmother No history of suicide attempts or self-harm Medical Evaluation Reviewed: Yes [facility] Medical History (Updated 08/06/23 @ 12:41 by Del Boucher MD) Cocaine use disorder Alcohol use disorder PTSD (post-traumatic stress disorder) Adjustment disorder with mixed disturbance of emotions and conduct in remission Migraine without aura Surgical History H/O: hysterectomy History of tonsillectomy Family History: Mother: Verbally abusive Social History: Patient has a full-time employee of this [employer], working her for about a year. She reports that this job has been stressful for her Lives alone in her own apartment with her beloved cat Never and no children Mother remains verbally abusive She is close to her father is ill and whom she visits regularly Substance History: Once a month she ends up bingeing on alcohol and cocaine for 1-2 days; otherwise she does not use any substances Trauma History: Positive history; did not discuss details Diagnostics Vital Signs (24Hr): Vital Signs - 24 hr 08/05/23 09:32 Temperature 98.1 F Pulse Rate 89 Respiratory Rate 14 Blood Pressure 132/85 Pulse Oximetry 95 Oxygen Delivery Method Room Air BMI result Body Mass Index 26.1 Labs 08/05/23 09:59 08/05/23 09:59 Labs: Laboratory Results - last 48 hr 08/05/23 08/05/23 09:59 16:21 WBC 5.6 RBC 3.90 L Hgb 12.5 Hct 36.5 L MCV 93.6 MCH 32.1 MCHC 34.2 RDW 12.2 Plt Count 348 MPV 9.4 Immature Gran % (Auto) 0.4 Neut % (Auto) 47.7 Lymph % (Auto) 39.2 [place] % (Auto) 9.3 Eos % (Auto) 3.2 Baso % (Auto) 0.2 Lymph # (Auto) 2.2 [place] # (Auto) 0.5 Eos # (Auto) 0.2 Baso # (Auto) 0.0 Abs Immat Gran (auto) 0.02 Absolute Neuts (auto) 2.7 Absolute Nucleated RBC 0.000 Nucleated RBC % (auto) 0.0 Sodium 141 Potassium 4.0 Chloride 106 Carbon Dioxide 27 Anion Gap 12 BUN 7 L Creatinine 0.85 Estim Creat Clear Calc 70.8 Estimated GFR > 60 Random Glucose 94 Calcium 8.7 D Total Bilirubin 0.4 AST 18 ALT 19 Alkaline Phosphatase 56 Total Protein 6.9 Albumin 4.2 Urine Color Yellow Urine Appearance Clear Urine pH 8.0 Ur Specific [place] <= 1.005 Urine Protein Negative Urine Glucose (UA) Negative Urine Ketones Negative Urine Blood Negative Urine Nitrite Negative Ur Leukocyte Esterase Negative Salicylates < 5.0 L Urine Opiates Screen Not Detected Ur Buprenorphine Scrn Not Detected Ur Oxycodone Screen Not Detected Urine Methadone Screen Not Detected Urine Fentanyl Screen Not Detected Acetaminophen < 3 Ur Barbiturates Screen Not Detected Ur Phencyclidine Scrn Not Detected Ur Amphetamines Screen Not Detected U Benzodiazepines Scrn Not Detected Urine Cocaine Screen POSITIVE H U Marijuana (THC) Screen Not Detected Ethyl Alcohol < 10 Meds/Allergies Meds Home Medications ?Medication ?Instructions ?Recorded ?Confirmed ?Type citalopram 40 mg tablet 40 mg PO DAILY 03/22/21 08/05/23 History clonazepam 0.5 mg tablet 0.5 mg PO BID PRN Anxiety 03/22/21 08/05/23 History lamotrigine 150 mg tablet 150 mg PO BID 03/22/21 08/05/23 History fexofenadine-pseudoephedrine ER 1 tab PO QAM 08/05/23 08/05/23 History 180 mg-240 mg tablet,ext.release 24 hr (Anisha-D 24 Hour) Allergies Allergies Allergy/AdvReac Type Severity Reaction Status Date / Time No Known Allergies Allergy Verified 08/05/23 09:33 Mental Status Exam Mental Status Exam Narrative: Pt is alert and oriented; behavior is cooperative, friendly and calm, and tearful; patient is not in distress; dressed in casual attire with adequate hygiene; mood is described as upset and affect congruent; eye contact appropriate; Speech is normal rate, volume and prosody and not pressured; no psychomotor agitation/retardation present; thought process is organized and goal directed; Thought content is on upset that she ended up getting psychiatrically admitted, wanting discharge; otherwise pertinent to relevant topics and without any delusional content, paranoid ideations or grandiosity; denies any SI/HI. There is no evidence of perceptual disturbance. Patients insight and judgment appear intact. Assessment & Plan Assessment & Plan (1) Adjustment disorder with mixed disturbance of emotions and conduct in remission: Status: Acute Code(s): F43.25 - Adjustment disorder with mixed disturbance of emotions and conduct (2) PTSD (post-traumatic stress disorder): Status: Acute Code(s): F43.10 - Post-traumatic stress disorder, unspecified (3) Alcohol use disorder: Status: Acute Code(s): F10.90 - Alcohol use, unspecified, uncomplicated (4) Cocaine use disorder: Status: Acute Code(s): F14.10 - Cocaine abuse, uncomplicated Plan Patient is a 43-year-old female with history of depression/anxiety, PTSD and intermittent cocaine/alcohol abuse. Patient presents after making suicidal comments to coworkers. Patient is upset that she is admitted, saying that her comments got taking way out of context and she remains on a 12 B. Despsite being upset she is calm, polite, cooperative, forthcoming, logical and linear and organized in behavior and speech. Patient said that about once a month she relapses with alcohol and cocaine which she did this past weekend. She says she always feels depressed and angry at herself the day after and this was no different. Patient reports that she has no history at all suicide or of any of self-harm. She reports that time to time she will get passive thoughts of wishing she were not here but adamantly reiterates she would never kill herself, knowing that these passive thoughts will soon pass and citing love for her father and cat as protective factors. Patient said that this Friday after this binge weekend, she was feeling depressed and texted a co-worker who was also friend that she wishes she could off herself. Patient says that this is not uncommon, she was just venting, and that her friend knows her well. She reports that her friend said something to the effect of stop Saying that... [listen to] put your music on... Later on in the day patient says she was crying (which she says is also not uncommon for her) and her supervisor dehydrogenation came over and asked why. Patient very much regrets ever saying anything to her but acknowledges she said something to the effect of have you ever just wanted to not be here anymore... Patient felt that her supervisor dehydrogenation started almost forcibly asking her questions which caused her to become exceedingly anxious and then triggered a full-blown panic attack causing patient to pass out. She was brought to the emergency room and although she maintains that she was never suicidal, that these were just thoughts that she was expressing, she is now being psychiatrically admitted. Patient again reiterates she does not need to be on a locked unit, that she has a therapist, psychiatrist that she is on medications which she takes regularly is in no way a risk to herself at all. She says she just wants to discharge, get back home, get back to her cat, and work out her issues with her outpatient provider as she normally does. She agrees that her once a month substance abuse is definitely a problem for her and that she needs to start going to AA. Formulation/clinical reasoning: It seems that while patient does struggle with anxiety and some depression, with intermittent passive SI, she has adequate outpatient providers already in place and sees her therapist once a week, which is being increased to twice a week. Clearly alcohol and cocaine abuse exacerbate her struggles however patient maintains that she was in no way actually suicidal and would never hurt herself and never has. At this point, data analyst report writer agrees that would ever was dysregulated seems to have resolved and patient appears to be back at baseline. Patient maintains that being forced to stay on inpatient unit is counterproductive for her and she would very much like discharge. She however understands that given the concern of others, collateral will need to be obtained and patient gave permission to discuss her case with therapist and psychiatric provider, providing the phone number and name of her therapist. That said, will monitor patient but as mentioned it seems she is likely back to baseline and if she continues to remain safe and collateral is able to be obtained, it is possible patient may be able to discharge soon. Plan: 12b Q 15 minute checks Start Lexapro since citalopram is not on formulary Continue Lamictal Will seek collateral Patient educated on: diagnosis, medication risk/benefits, substance abuse and therapeutic strategies Informed Consent: understands Reason for continued inpatient stay Substantial Risk for: stable for discharge and rapid decompensation Statement Statement: I have reviewed the history and physical and performed a pertinent examination on my patient. No changes have occurred unless specified. If the History and Physical was not performed prior to admission, the Hospitalist's service will be consulted for completing the admission physical. Time Spent With Patient Time: Total time managing care of this patient today ____ minutes.
[2023-08-05 17:58] VITALS: BMI 24.9
[2023-08-05 17:59] VITALS: BP 121/85; PULSE 80; RESP 16; TEMP 36.9; O2SAT 97
--- NOTE | 2023-08-05 18:00 | PC.ADMIT ---
Debbie arrived to the unit at 1645 from [facility], met with Dr. Boucher currently on a 12B, sharp check done by va underwriter and female RN, skin appears intact. Upon approach she is teary, stated I don't want no one to know I'm here, I work here started crying. She reports endorsing 3/10 anxiety, rated her depression a 5/10 stated That's everyday though. she denied auditory/visual hallucinations stated I never have that, When asked if she had any thoughts of wanting to hurt self or others stated No, verbalized to look for staff if thoughts occur. She reports she's had a psychiatrist and therapist For twenty years, reports she has been on the same medications for twenty years, continues to state through our discussion I don't want no one to know I'm here, I work here. She appears slightly guarded, per assessment she was accompanied to the ER with co-workers following reporting suicidal ideation, per manager utility she text her I can't take it anymore and that she was going to drop of her cat at [place] and end it. Debbie is currently on 15 minute checks.
[2023-08-05] MEDS: lamoTRIgine 25 MG TABLET 150 MG PO (20:43)
[2023-08-05] MEDS: traZODone HCL 50 MG TABLET PO (20:43)
[2023-08-06 08:30] LABS: Estimated Average Glucose 105 mg/dL; Hemoglobin A1c % 5.3 % (<6.0)
[2023-08-06 08:42] LABS: Cholesterol 191 mg/dL (<200); HDL Cholesterol 44 mg/dL (>40); LDL Cholesterol Calculated 119 mg/dL (<100); Triglycerides 142 mg/dL (<150)
[2023-08-06] MEDS: Acetaminophen 325 MG TABLET 650 MG PO (09:22)
[2023-08-06] MEDS: clonazePAM 0.5 MG TABLET PO (09:22)
[2023-08-06 09:55] VITALS: BP 126/75; PULSE 97; RESP 18; TEMP 36.8; O2SAT 97
--- NOTE | 2023-08-06 12:50 | P.DS_ITS ---
DS: Providers Provider Date of Service: 08/06/23 Date of admission: 08/05/23 15:53 Date of discharge: 08/06/23 Primary care physician: Kailee Mcdonald NP Attending physician on admission: Del Boucher Attending physician on discharge: Del Boucher DS: Diagnosis Discharge Diagnosis (1) Adjustment disorder with mixed disturbance of emotions and conduct in remission: Status: Acute (2) PTSD (post-traumatic stress disorder): Status: Acute (3) Alcohol use disorder: Status: Acute (4) Cocaine use disorder: Status: Acute DS: Medications Discharge Medications Home Medications: Home Medications ?Medication ?Instructions ?Recorded ?Confirmed citalopram 40 mg tablet 40 mg PO DAILY 03/22/21 08/05/23 clonazepam 0.5 mg tablet 0.5 mg PO BID PRN Anxiety 03/22/21 08/05/23 lamotrigine 150 mg tablet 150 mg PO BID 03/22/21 08/05/23 fexofenadine-pseudoephedrine ER 1 tab PO QAM 08/05/23 08/05/23 180 mg-240 mg tablet,ext.release 24 hr (Anisha-D 24 Hour) Previous Rx's ?Medication ?Instructions ?Recorded sumatriptan succinate 100 mg tablet 100 mg PO Q2H PRN migraine 10/15/22 headache 30 days #12 tabs clonidine HCl 0.1 mg tablet 0.1 mg PO Q4H PRN anxiety 30 days 08/06/23 #60 tabs Mental Status Exam Mental Status Exam Narrative: Pt is alert and oriented; behavior is cooperative, friendly and calm; patient is not in distress; dressed in casual attire with adequate hygiene; mood is described as upset and affect congruent; eye contact appropriate; Speech is n ormal rate, volume and prosody and not pressured; no psychomotor agitation/retardation present; thought process is organized and goal directed; Thought content is on dealing with current situation, discharge, outpatient treatment; otherwise pertinent to relevant topics and without any delusional content, paranoid ideations or grandiosity; denies any SI/HI. There is no evidence of perceptual disturbance. Patients insight and judgment are intact. Data Data Completed and Pending Completed studies during hospitalization [Text1]: 08/05/23 08/05/23 08/06/23 09:59 16:21 08:01 WBC 5.6 RBC 3.90 L Hgb 12.5 Hct 36.5 L MCV 93.6 MCH 32.1 MCHC 34.2 RDW 12.2 Plt Count 348 MPV 9.4 Immature Gran % (Auto) 0.4 Neut % (Auto) 47.7 Lymph % (Auto) 39.2 [place] % (Auto) 9.3 Eos % (Auto) 3.2 Baso % (Auto) 0.2 Lymph # (Auto) 2.2 [place] # (Auto) 0.5 Eos # (Auto) 0.2 Baso # (Auto) 0.0 Abs Immat Gran (auto) 0.02 Absolute Neuts (auto) 2.7 Absolute Nucleated RBC 0.000 Nucleated RBC % (auto) 0.0 Sodium 141 Potassium 4.0 Chloride 106 Carbon Dioxide 27 Anion Gap 12 BUN 7 L Creatinine 0.85 Estim Creat Clear Calc 70.8 Estimated GFR > 60 Random Glucose 94 Estimat Average Glucose 105 Hemoglobin A1c % 5.3 Calcium 8.7 D Total Bilirubin 0.4 AST 18 ALT 19 Alkaline Phosphatase 56 Total Protein 6.9 Albumin 4.2 Triglycerides 142 Cholesterol 191 LDL Cholesterol, Calc 119 H HDL Cholesterol 44 Urine Color Yellow Urine Appearance Clear Urine pH 8.0 Ur Specific [place] <= 1.005 Urine Protein Negative Urine Glucose (UA) Negative Urine Ketones Negative Urine Blood Negative Urine Nitrite Negative Ur Leukocyte Esterase Negative Salicylates < 5.0 L Urine Opiates Screen Not Detected Ur Buprenorphine Scrn Not Detected Ur Oxycodone Screen Not Detected Urine Methadone Screen Not Detected Urine Fentanyl Screen Not Detected Acetaminophen < 3 Ur Barbiturates Screen Not Detected Ur Phencyclidine Scrn Not Detected Ur Amphetamines Screen Not Detected U Benzodiazepines Scrn Not Detected Urine Cocaine Screen POSITIVE H U Marijuana (THC) Screen Not Detected Ethyl Alcohol < 10 DS: Summary Hospital Course Hospital Course: Patient is a 43-year-old female with history of depression/anxiety, PTSD and intermittent cocaine/alcohol abuse. Patient presents after making suicidal comments to coworkers. Patient is upset that she is admitted, saying that her comments got taking way out of context and she remains on a 12 B. Despsite being upset she is calm, polite, cooperative, forthcoming, logical and linear and organized in behavior and speech. Patient said that about once a month she relapses with alcohol and cocaine which she did this past weekend. She says she always feels depressed and angry at herself the day after and this was no different. Patient reports that she has no history at all suicide or of any of self-harm. She reports that time to time she will get passive thoughts of wishing she were not here but adamantly reiterates she would never kill herself, knowing that these passive thoughts will soon pass and citing love for her father and cat as protective factors. Patient said that this Friday after this binge weekend, she was feeling depressed and texted a co-worker who was also friend that she wishes she could off herself. Patient says that this is not uncommon, she was just venting, and that her friend knows her well. She reports that her friend said something to the effect of stop Saying that... [listen to] put your music on... Later on in the day patient says she was crying (which she says is also not uncommon for her) and her instant powder supervisor came over and asked why. Patient very much regrets ever saying anything to her but acknowledges she said something to the effect of have you ever just wanted to not be here anymore... Patient felt that her instant powder supervisor started almost forcibly asking her questions which caused her to become exceedingly anxious and then triggered a full-blown panic attack causing patient to pass out. She was brought to the emergency room and although she maintains that she was never suicidal, that these were just thoughts that she was expressing, she is now being psychiatrically admitted. Patient again reiterates she does not need to be on a locked unit, that she has a therapist, psychiatrist that she is on medications which she takes regularly is in no way a risk to herself at all. She says she just wants to discharge, get back home, get back to her cat, and work out her issues with her outpatient provider as she normally does. She agrees that her once a month substance abuse is definitely a problem for her and that she needs to start going to AA. initial Formulation/clinical reasoning/hospital course: It seems that while patient does struggle with anxiety and some depression, with intermittent passive SI, she has adequate outpatient providers already in place and sees her therapist once a week, which is being increased to twice a week. Clearly alcohol and cocaine abuse exacerbate her struggles however patient maintains that she was in no way actually suicidal and would never hurt herself and never has. At this point, typewriter assembly and parts inspector agrees that would ever was dysregulated seems to have resolved and patient appears to be back at baseline. Patient maintains that being forced to stay on inpatient unit is counterproductive for her and she would very much like discharge. She however understands that given the concern of others, collateral will need to be obtained and patient gave permission to discuss her case with therapist and psychiatric provider, providing the phone number and name of her therapist. That said, will monitor patient but as mentioned it seems she is likely back to baseline and if she continues to remain safe and collateral is able to be obtained, it is possible patient may be able to discharge soon. 08/05 patient has remained stable, in good behavioral and impulse control and appropriate with peers and staff. She slept well. She remains hoping for discharge and denies any SI at all. Discussed medications which she takes reg papa accept on the few days wooden she binges with substance abuse and she has found them overall effective. She says her new job has been stressful and she does cry at work but she feels she overall yael well and is grateful for her therapist which he finds very helpful. Discussed adding clonidine, reviewed risks/side effects, as a means to see if it can help with anxiety. Otherwise reviewed risks/side effects of Lamictal which she understands. Regarding the comment about dropping her cat off at skilled nursing, she said this is a reference to a comment she made many months ago, to another co-worker who was struggling with her own despair; patient said the comment was made only as a reference that she too sometimes struggles with despair, but again was not referencing any actual plan for self-harm and has nothing to do with this recent incident. Photocopy Operator and health care social worker were able to communicate with patient's outpatient therapist who concurs that patient is not suicidal. Impression: Patient has remained in good behavioral and impulse control throughout her time on the unit. Collateral obtained from her outpatient therapist who knows her well and concurs that patient has never been suicidal and she does not think that she is at risk for self-harm. Photocopy Operator agrees. And though she was [id number] dysregulated, it has resolved, the situation has passed and she is back to her baseline. Patient demonstrates both improved insight and judgment, realizing and acknowledging that her venting of suicidal thoughts provoked concern in others which she regrets and going forward will find a healthier way to talk about her struggles; she also acknowledges that she needs to attend AA which she has been planning to do but which she now views as essent [email or web address]. She has no history of self-harm, has significant protective factors in place and remains future oriented, wanting to get back home, see her father and get back to work. Medications were discussed and they seem to be adequate and effective. Patients chronic struggles with anxiety will not resolve with longer stay on inpatient unit but rather require consistent outpatient therapy with which she is already thoroughly engaged. Patient is on a 12B and does not rise to the level involuntary commitment. 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 Patient is not in imminent risk for harm to self or others and request for discharge honored. Status at Discharge Functional status at discharge: independent ambulation Overall status at discharge: patient is back to baseline Time Spent with Patient Time attestation: Total time managing care of this patient today _50___ minutes. Time spent: Greater than 30 minutes Discharge Plan Discharge Anticipated Discharge Date/Time: 08/06/23 13:46 Patient Disposition: Home, Self-Care Discharge Diagnosis: Adjustment disorder with mixed disturbance of emotion and conduct, in full remission Referrals: [facility] Psychiatry with Dr. Bill Patrick [Other] - 08/15/23 11:40 am Kailee Mcdonald, [facility] [Primary Care Provider] - 1 Week (Please follow up) Discharge Medications: New clonidine HCl 0.1 mg Tablet 0.1 mg PO Q4H PRN (Reason: anxiety) 30 Days Qty: 60 0RF Protocol: Hold for SBP< HOLD for SBP < : 90 Continued sumatriptan succinate 100 mg tablet 100 mg PO Q2H PRN (Reason: migraine headache) 30 Days Qty: 12 6RF Rx Instructions: max 2 tabs per day or 4 tabs/week (may take with Tylenol) fexofenadine-pseudoephedrine [Anisha-D 24 Hour] 180-240 mg Tablet Extended Release 24 Hr 1 tab PO QAM citalopram 40 mg tablet 40 mg PO DAILY lamotrigine 150 mg tablet 150 mg PO BID clonazepam 0.5 mg tablet 0.5 mg PO BID PRN (Reason: Anxiety) Discharge Orders: Discharge Order (Routine); Ordered 08/06/23 Ordered By: Del Boucher Diet: Regular diet Activity on Discharge: As tolerated Stand Alone Forms: Patient Portal Discharge page, Community Support Print Language: Brazilian Care Plan Goals: Maintain mood and safe behaviors Take medications as prescribed Continue to pursue sobriety Practice coping skills Continue with outpatient providers and reach out to them as needed Health Concerns: Mood stability and behaviors Sobriety Plan of Treatment: Follow up with your PCP, psychiatric provider and other outpatient providers regarding above concerns Take medications as prescribed Assessment: Risk assessment at time of discharge:? Patient was interviewed prior to discharge and found to be fully oriented and without any SI or HI. Patient has improved insight and judgment and wants to continue treatment. Patient is not in imminent risk of harm to self or others and has a safety plan that includes presenting to the closest ER or calling 911 if feeling unsafe.? Patient has been observed closely by nursing and unit staff throughout admission; patient has not engaged in any behaviors that suggest dangerousness to self or others and has demonstrated appropriate behaviors and impulse control Discharge Date/Time: 08/06/23 13:30
[2023-08-06] MEDS: Naloxone HCl Nasal TAKE HOME 4 MG SPRAY 8 MG NOSTRILALT (13:00)
== END 2023-08-06 13:30 | disposition home or self-care (01) | DRG 755 ==
LOC: HO.ED 15:36 → HO.PM5 15:57
PROVIDERS: Admitting Provider Psychiatry & Neurology Psychiatry; Emergency Provider Emergency Medicine; PCP Nurse Practitioner Family; Visit Provider Psychiatry & Neurology Psychiatry
DX: F43.25 Adjustment disorder with mixed disturbance of emotions and conduct (principal); R45.851 Suicidal ideations; F10.10 Alcohol abuse, uncomplicated; F41.9 Anxiety disorder, unspecified; F43.10 Post-traumatic stress disorder, unspecified; F14.10 Cocaine abuse, uncomplicated; Z79.899 Other long term (current) drug therapy
CPT/HCPCS: 36415; 80053; 80061; 80143; 80179; 80307; 81003; 83036; 85025; 93005; 99285; S9485

== ENCOUNTER → 2023-08-05 09:47 | Outpatient (BNV) | payer OTHER, SELFPAY | PROVIDERS: Admitting Provider Psychiatry & Neurology Psychiatry; Emergency Provider Emergency Medicine; PCP Nurse Practitioner Family; Visit Provider Internal Medicine Cardiovascular Disease | DX: R07.89 Other chest pain (principal) | CPT/HCPCS: 93010 ==

== ENCOUNTER → 2023-08-05 15:53 | Outpatient (BNV) | payer OTHER, SELFPAY | PROVIDERS: Admitting Provider Psychiatry & Neurology Psychiatry; Emergency Provider Emergency Medicine; PCP Nurse Practitioner Family; Visit Provider Psychiatry & Neurology Psychiatry | DX: F14.10 Cocaine abuse, uncomplicated (principal); F10.90 Alcohol use, unspecified, uncomplicated; F43.25 Adjustment disorder with mixed disturbance of emotions and conduct; F43.11 Post-traumatic stress disorder, acute | CPT/HCPCS: 99222; 99239 ==

== ENCOUNTER → 2023-08-08 09:53 | Outpatient (BNVA) | payer OTHER, SELFPAY | PROVIDERS: PCP Nurse Practitioner Family; Visit Provider Internal Medicine | DX: Z13.89 Encounter for screening for other disorder (principal) ==